=== PATIENT | male | born 1935 | race Caucasian/White ===

== ENCOUNTER 2016-10-24 10:01 | Emergency (ER) | payer OTHER, MEDICARE ==
[2016-10-24 10:08] VITALS: BP 121/52; PULSE 63; RESP 18; TEMP 98.4; O2SAT 94
[2016-10-24] MEDS ORDERED: TDAP ADULT 0.5 ML INJ (BOOSTRIX) IM ONE (10:35)
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
== END 2016-10-24 11:33 | disposition home or self-care (01) ==
PROC: 0HQDXZZ Repair Right Lower Arm Skin, External Approach (ICD-10-PCS; principal; 2016-10-24)
DX: S61.511A Laceration without foreign body of right wrist, initial encounter (principal); I10 Essential (primary) hypertension; Z79.82 Long term (current) use of aspirin; Z23 Encounter for immunization; W23.0XXA Caught, crushed, jammed, or pinched between moving objects, initial encounter; Y99.8 Other external cause status; Y93.01 Activity, walking, marching and hiking
CPT/HCPCS: 96372-PO

== ENCOUNTER 2017-11-21 15:06 | Emergency (ER) | payer OTHER, MEDICARE ==
--- NOTE | 2017-11-21 15:14 | EDPHY ---
H & P Time Seen by Provider: 11/21/17 15:14 HPI/ROS: HPI CHIEF COMPLAINT: Lower abdominal pain, lightheadedness HISTORY OF PRESENT ILLNESS: Very pleasant 82-year-old male, history of hypertension, hyperlipidemia, presents emergency room by EMS from his office , patient started having lower abdominal pain and cramping, he felt lightheaded, he arrived by ambulance, once he arrived he immediately had a bowel movement in the ER bathroom large amount of diarrhea nonbloody. Since having this he feels much better. Upon my evaluation is stable vital signs however she is declining any medical workup. Declining any blood work or imaging. Denies CP or SOB. Denies vomiting. Denies CUEVAS or neck pain. Patient states he would like to rest here and if he has no further abdominal pain or lightheadedness he would like to be discharged. He has declined any medical evaluation including blood work or imaging at this time. Past Medical History: Hypertension, hyperlipidemia Past Surgical History: Hernia Social History: Denies drugs alcohol tobacco. Family History: Noncontributory ROS REVIEW OF SYSTEMS: 10 Systems were reviewed and negative with the exception of the elements mentioned in the history of present illness. Exam Constitutional elderly nontoxic triage nursing summary reviewed, vital signs reviewed, awake/alert. Eyes normal conjunctivae and sclera, EOMI, PERRLA. HENT normal inspection, atraumatic, moist mucus membranes, no epistaxis, neck supple/ no meningismus, no raccoon eyes. Respiratory clear to auscultation bilaterally, normal breath sounds, no respiratory distress, no wheezing. Cardiovascular rate normal, regular rhythm, no murmur, no edema, distal pulses normal. Gastrointestinal soft, non-tender, no rebound, no guarding, normal bowel sounds, no distension, no pulsatile mass. Genitourinary no CVA tenderness. Musculoskeletal no midline vertebral tenderness, full range of motion, no calf swelling, no tenderness of extremities, no meningismus, good pulses, neurovascularly intact. Skin pink, warm, & dry, no rash, skin atraumatic. Neurologic awake, alert and oriented x 3, AAOx3, moves all 4 extremities equally, motor intact, sensory intact, CN II-XII intact, normal cerebellar, normal vision, normal speech. Psychiatric normal mood/affect. Heme/Lymph/Immune no lymphadenopathy. Differential diagnosis includes but is not limited to and in no particular order : Bowel obstruction, appendicitis, gallbladder disease, diverticulitis, colitis , enteritis, perforated viscus, gastritis, GERD, esophagitis, urinary tract infection, pyelonephritis, kidney stones, AAA Medical Decision Making: Plan for this patient he is declining IV establishment or blood work or imaging at this time. He states he feels better after having a diarrheal bowel movement in the emergency room. Given that he does not want an IV establishment blood work or imaging will re- evaluate shortly and watch him for period time in the emergency room. Re-evaluation: 1532: I did go and re-evaluate the patient again I offered him workup for his abdominal pain and lightheadedness, encouraged him to have an IV establishment IV fluid bolus and basic blood work and possible imaging of his abdomen however he has declined this. He understands the risk of declining medical evaluation in the emergency room. This been discussed at length with him. 1541: Patient is requesting nursing staff for discharge. Patient does not want stay for evaluation. Patient decided against medical advice. Patient signed out AMA, understands the risks of doing so including morbidity/ mortality without complete work up for Abdominal pain. Return precuations discussed, obviously free to return to the Er if worsening symptoms, quesitons, concerns. Or not feeling well or increasing abdominal pain. Source: Patient, EMS - Medical/Surgical History Hx Asthma: No Hx Chronic Respiratory Disease: No Hx Diabetes: No Hx Cardiac Disease: Yes Hx Renal Disease: No Hx Cirrhosis: No Hx Alcoholism: No Hx HIV/AIDS: No Hx Splenectomy or Spleen Trauma: No Other PMH: hernia, HTN, choleslterol - Social History Smoking Status: Never smoked Constitutional: Initial Vital Signs Temperature (C) 36.9 C 11/21/17 15:22 Heart Rate 77 11/21/17 15:22 Respiratory Rate 18 11/21/17 15:22 Blood Pressure 133/77 H 11/21/17 15:22 O2 Sat (%) 98 11/21/17 15:22 O2 Delivery Mode Room Air Allergies/Adverse Reactions: No Known Allergies Allergy (Verified 11/22/17 09:12) Home Medications: Medication Instructions Recorded Amlodipine Besylate 5 mg PO DAILY 11/20/10 Aspirin [Aspirin 81mg] 81 mg PO DAILY 11/20/10 Pravastatin Sodium [Pravachol] 40 mg PO 11/20/10 Tamsulosin HCl 0.4 mg PO DAILY 11/20/10 Ciprofloxacin [Cipro] 500 mg PO BID #20 tab 11/22/17 Famotidine 11/22/17 Lyrica 11/22/17 Meloxicam 11/22/17 Metoprolol Succinate Xr 11/22/17 Multivitamin (*) 11/22/17 Myrbetriq 11/22/17 Oxybutynin 11/22/17 Vitamin B12 11/22/17 Vitamin D3 11/22/17 metroNIDAZOLE [Flagyl 500 mg (*)] 500 mg PO TID #30 tab 11/22/17 traMADol 11/22/17 Departure - Departure Disposition: Against Medical Advice Clinical Impression: Abdominal pain Qualifiers: Abdominal location: lower abdomen, unspecified Qualified Code(s): R10.30 - Lower abdominal pain, unspecified Condition: Good Instructions: Acute Abdominal Pain (ED) Additional Instructions: 1. Return emergency room if you develops worsening abdominal pain or you do not feel well. Referrals: Patient,NotPresent [Unknown] - As per Instructions
[2017-11-21 15:25] VITALS: BP 133/77
== END 2017-11-21 15:47 | disposition left against medical advice (07) ==
LOC: EDUNIT#
DX: R10.30 Lower abdominal pain, unspecified (principal); R42 Dizziness and giddiness

== ENCOUNTER 2017-11-22 09:06 | Emergency (ER) | payer OTHER, MEDICARE ==
--- NOTE | 2017-11-22 09:28 | EDPHY ---
H & P Stated Complaint: blood from rectum Time Seen by Provider: 11/22/17 09:23 - Personal History Current Tetanus/Diphtheria Vaccine: Yes Current Tetanus Diphtheria and Acellular Pertussis (TDAP): Yes - Medical/Surgical History Hx Asthma: No Hx Chronic Respiratory Disease: No Hx Diabetes: No Hx Cardiac Disease: Yes Hx Renal Disease: No Hx Cirrhosis: No Hx Alcoholism: No Hx HIV/AIDS: No Hx Splenectomy or Spleen Trauma: No Other PMH: hernia, HTN, high cholesterol, - Social History Smoking Status: Never smoked Constitutional: Initial Vital Signs Temperature (C) 36.7 C 11/22/17 09:13 Heart Rate 77 11/22/17 09:13 Respiratory Rate 16 11/22/17 09:13 Blood Pressure 147/64 H 11/22/17 09:13 O2 Sat (%) 94 11/22/17 09:13 O2 Delivery Mode Room Air Allergies/Adverse Reactions: No Known Allergies Allergy (Verified 11/22/17 09:12) Home Medications: Medication Instructions Recorded Amlodipine Besylate 5 mg PO DAILY 11/20/10 Aspirin [Aspirin 81mg] 81 mg PO DAILY 11/20/10 Pravastatin Sodium [Pravachol] 40 mg PO 11/20/10 Tamsulosin HCl 0.4 mg PO DAILY 11/20/10 Ciprofloxacin [Cipro] 500 mg PO BID #20 tab 11/22/17 Famotidine 11/22/17 Lyrica 11/22/17 Meloxicam 11/22/17 Metoprolol Succinate Xr 11/22/17 Multivitamin (*) 11/22/17 Myrbetriq 11/22/17 Oxybutynin 11/22/17 Vitamin B12 11/22/17 Vitamin D3 11/22/17 metroNIDAZOLE [Flagyl 500 mg (*)] 500 mg PO TID #30 tab 11/22/17 traMADol 11/22/17 Medical Decision Making ED Course/Re-evaluation: CHIEF COMPLAINT: Blood per rectum HISTORY OF PRESENT ILLNESS: This patient is an 82 year old male with history of hypertension, hyperlipidemia. He was evaluated in this emergency department yesterday evening for cramping abdominal pain and lightheadedness, but reportedly declined further workup at that time as his symptoms had resolved. Yesterday afternoon around 2pm, he had a syncopal episode associated with abdominal pain. He clarifies that this was provoked by straining to have a bowel movement. He had similar symptoms one week ago, and his discomfort on both occasions was relieved after a large bowel movement. Last night when he arrived home, he began having red blood per rectum. This continued this morning, though the volume has decreased. He denies any dark, tarry stools. He denies any history of abdominal surgeries. He denies fever, vomiting, diarrhea, weakness, or other associated symptoms. He is not anticoagulated. REVIEW OF SYSTEMS: A comprehensive 10 system review of systems is otherwise negative aside from elements mentioned in the history of present illness and medical decision making. PHYSICAL EXAM: HR, BP, O2 Sat, RR. Temp noted General Appearance: Alert, well hydrated, appropriate, and non-toxic appearing. Head: Atraumatic without scalp tenderness or obvious injury Eyes: Pupils equal, round, reactive to light and accommodation, EOMI, no trauma , no injection. Ears: Clear bilaterally, no perforation, normal landmarks Nose: Atraumatic, no rhinorrhea, clear. Throat: There is no erythema or exudates, no lesions, normal tonsils, mucus membranes moist. Neck: Supple, 2+ carotid upstroke, nontender, no lymphadenopathy. Respiratory: No retractions, no distress, no wheezes, and no accessory muscle use. Lungs are clear to auscultation bilaterally. Cardiovascular: Regular rate and rhythm, no murmurs, rubs, or gallops. Bilateral carotid, radial, dorsalis pedis, and posterior tibial pulses intact. Good capillary refill all extremities. Gastrointestinal: Tenderness to RLQ. Abdomen is soft, non-distended, no masses, no rebound, no guarding, no peritoneal signs. Musculoskeletal: Normal active ROM of all extremities, atraumatic. Neurological: Alert, appropriate, and interactive. The patient has normal DTRs and non-focal cranial nerves, motor, sensory, and cerebellar exam. Skin: No rashes, good turgor, no nodules on palpation. Past medical history: Hypertension, hyperlipidemia. Past surgical history: Noncontributory. Denies history of abdominal surgeries. Family history: Noncontributory. Social history: . Employed. Lives in [place]. DIFFERENTIAL DIAGNOSIS: The differential diagnosis for the patient's lower GI bleeding included but was not limited to diverticulosis, tumor, AVM, hemorrhoid, and upper GI Bleed. MEDICAL DECISION MAKING: This 82 y/o male presents with history of bright red rectal bleeding following an episode of abdominal pain and syncope associated with a large bowel movement. Patient's syncope was likely vasovagal, related to straining for a bowel movement. Plan for labs including CBC, chemistry, liver, lipase, coag panel. Plan for CT abdomen pelvis. Plan to administer 1L IV NS and 4mg IV Zofran for symptom relief. Laboratory studies largely unremarkable. Hct/Hgb within normal limits. 11:[address] Saleh, radiologist. CT shows evidence of uncomplicated diverticulitis. 11:05 Reassessed patient. Discussed imaging and laboratory results. Plan to discharge home in good condition with prescription for Cipro and Flagyl. Follow up and return precautions discussed. He is comfortable with this plan. - Data Points Laboratory Results: Laboratory Results 11/22/17 08:40 11/22/17 08:40 11/22/17 11/22/17 11/22/17 10:06 09:50 08:40 WBC RBC Hgb POC Hgb 16.0 gm/dL gm/dL 15.6 gm/dL gm/dL (13.7-17.5) (13.7-17.5) Hct POC Hct 47 % % 46 % % (40-51) (40-51) MCV MCH MCHC RDW Plt Count MPV Neut % (Auto) Lymph % (Auto) Crowley % (Auto) Eos % (Auto) Baso % (Auto) Nucleat RBC Rel Count Absolute Neuts (auto) Absolute Lymphs (auto) Absolute Monos (auto) Absolute Eos (auto) Absolute Basos (auto) Absolute Nucleated RBC Immature Gran % Immature Gran # PT INR APTT POC Sodium 145 mEq/L mEq/L 144 mEq/L mEq/L (135-145) (135-145) Sodium 143 mEq/L mEq/L (135-145) POC Potassium 3.6 mEq/L mEq/L 3.7 mEq/L mEq/L (3.3-5.0) (3.3-5.0) Potassium 4.0 mEq/L mEq/L (3.3-5.0) POC Chloride 105 mEq/L mEq/L 105 mEq/L mEq/L (97-110) (97-110) Chloride 106 mEq/L mEq/L (97-110) Carbon Dioxide 26 mEq/l mEq/l (22-31) Anion Gap 11 mEq/L mEq/L (8-16) POC BUN 19 mg/dL mg/dL 19 mg/dL mg/dL (7-23) (7-23) BUN 20 mg/dL mg/dL (7-23) Creatinine 1.0 mg/dL mg/dL (0.7-1.3) POC Creatinine 1.0 mg/dL mg/dL 1.0 mg/dL mg/dL (0.7-1.3) (0.7-1.3) Estimated GFR > 60 Glucose 113 mg/dL H mg/dL (70-100) POC Glucose 112 mg/dL H mg/dL 113 mg/dL H mg/dL (70-100) (70-100) Calcium 10.1 mg/dL mg/dL (8.5-10.4) Total Bilirubin 1.3 mg/dL mg/dL (0.1-1.4) Conjugated Bilirubin 0.1 mg/dL mg/dL (0.0-0.5) Unconjugated Bilirubin 1.2 mg/dL H mg/dL (0.0-1.1) AST 41 IU/L IU/L (17-59) ALT 54 IU/L IU/L (21-72) Alkaline Phosphatase 83 IU/L IU/L (38-126) Total Protein 6.8 g/dL g/dL (6.3-8.2) Albumin 4.3 g/dL g/dL (3.5-5.0) Lipase 26 IU/L IU/L (23-300) 11/22/17 11/22/17 08:40 08:40 WBC 9.49 10^3/uL 10^3/uL (3.80-9.50) RBC 4.82 10^6/uL 10^6/uL (4.40-6.38) Hgb 15.4 g/dL g/dL (13.7-17.5) POC Hgb Hct 45.2 % % (40.0-51.0) POC Hct MCV 93.8 fL fL (81.5-99.8) MCH 32.0 pg pg (27.9-34.1) MCHC 34.1 g/dL g/dL (32.4-36.7) RDW 13.8 % % (11.5-15.2) Plt Count 119 10^3/uL L 10^3/uL (150-400) MPV 12.5 fL H fL (8.7-11.7) Neut % (Auto) 73.9 % % (39.3-74.2) Lymph % (Auto) 12.9 % L % (15.0-45.0) Crowley % (Auto) 12.1 % % (4.5-13.0) Eos % (Auto) 0.6 % % (0.6-7.6) Baso % (Auto) 0.2 % L % (0.3-1.7) Nucleat RBC Rel Count 0.0 % % (0.0-0.2) Absolute Neuts (auto) 7.01 10^3/uL H 10^3/uL (1.70-6.50) Absolute Lymphs (auto) 1.22 10^3/uL 10^3/uL (1.00-3.00) Absolute Monos (auto) 1.15 10^3/uL H 10^3/uL (0.30-0.80) Absolute Eos (auto) 0.06 10^3/uL 10^3/uL (0.03-0.40) Absolute Basos (auto) 0.02 10^3/uL 10^3/uL (0.02-0.10) Absolute Nucleated RBC 0.00 10^3/uL 10^3/uL (0-0.01) Immature Gran % 0.3 % % (0.0-1.1) Immature Gran # 0.03 10^3/uL 10^3/uL (0.00-0.10) PT 14.0 SEC SEC (12.0-15.0) INR 1.06 (0.83-1.16) APTT 28.0 SEC SEC (23.0-38.0) POC Sodium Sodium POC Potassium Potassium POC Chloride Chloride Carbon Dioxide Anion Gap POC BUN BUN Creatinine POC Creatinine Estimated GFR Glucose POC Glucose Calcium Total Bilirubin Conjugated Bilirubin Unconjugated Bilirubin AST ALT Alkaline Phosphatase Total Protein Albumin Lipase Medications Given: Discontinued Medications Sodium Chloride (Ns) 1,000 mls @ 0 mls/hr IV EDNOW ONE; Wide Open PRN Reason: Protocol Stop: 11/22/17 09:31 Last Admin: 09/26/18 09:48 Dose: 1,000 mls Ondansetron HCl (Zofran) 4 mg IVP EDNOW ONE Stop: 11/22/17 09:31 Last Admin: 11/22/17 09:49 Dose: Not Given Point of Care Test Results: Chemistry 11/22/17 11/22/17 10:06 09:50 POC Sodium 145 mEq/L mEq/L 144 mEq/L mEq/L (135-145) (135-145) POC Potassium 3.6 mEq/L mEq/L 3.7 mEq/L mEq/L (3.3-5.0) (3.3-5.0) POC Chloride 105 mEq/L mEq/L 105 mEq/L mEq/L (97-110) (97-110) POC BUN 19 mg/dL mg/dL 19 mg/dL mg/dL (7-23) (7-23) POC Creatinine 1.0 mg/dL mg/dL 1.0 mg/dL mg/dL (0.7-1.3) (0.7-1.3) POC Glucose 112 mg/dL H mg/dL 113 mg/dL H mg/dL (70-100) (70-100) ISTAT H&H 11/22/17 11/22/17 10:06 09:50 POC Hgb 16.0 gm/dL gm/dL 15.6 gm/dL gm/dL (13.7-17.5) (13.7-17.5) POC Hct 47 % % 46 % % (40-51) (40-51) Departure - Departure Disposition: Home, Routine, Self-Care Clinical Impression: Diverticulitis Condition: Good Instructions: Diverticulitis (ED), Rectal Bleeding (ED), Diverticulitis Diet ( ED) Additional Instructions: 1. Take Cipro and Flagyl as prescribed. It is important to finish your entire course of antibiotics. 2. Follow up with your primary care provider in 2-3 days. We have provided a referral to a freight and passenger agent as well. 3. Return to the emergency department for fever, severe pain, weakness or further episodes of fainting, if you develop dark, tarry stools, or for other worsening of condition or further concerns. Referrals: Papo Fisher MD [Primary Care Provider] - As per Instructions Pranay Huff MD [Medical Doctor] - As per Instructions Prescriptions: Ciprofloxacin [Cipro] 500 mg PO BID #20 tab metroNIDAZOLE [Flagyl 500 mg (*)] 500 mg PO TID #30 tab Report Scribed for: Bobby Johnson Report Scribed by: Nichole Stringer Date of Report: 11/22/17 Time of Report: 10:17
[2017-11-22] MEDS ORDERED: NS 1,000 ML IV ONE (09:30)
[2017-11-22] MEDS ORDERED: ONDANSETRON 4 MG/2 ML VIAL IVP ONE (09:30)
[2017-11-22 09:52] LABS: PLATELET COUNT 119 10^3/uL (150-400)
[2017-11-22 10:11] LABS: INR 1.06 (0.83-1.16)
[2017-11-22] MEDS ORDERED: IOPAMIDOL (ISOVUE-300) 100 ML BTL ONE (10:25)
[2017-11-22 11:16] VITALS: BP 149/69
== END 2017-11-22 11:15 | disposition home or self-care (01) ==
DX: K57.92 Diverticulitis of intestine, part unspecified, without perforation or abscess without bleeding (principal); I10 Essential (primary) hypertension; E78.5 Hyperlipidemia, unspecified
CPT/HCPCS: 74177; 99285; Q9967; 82435-PO; 82565-PO; 82947-PO; 84132-PO; 84295-PO; 84520-PO; 85014-PO

== ENCOUNTER 2018-07-29 17:22 | Observation (INO) | payer OTHER, MEDICARE ==
--- NOTE | 2018-07-29 17:29 | EDPHY ---
H & P Stated Complaint: L chest/shoulder pain since last night --worse w/mvmt Time Seen by Provider: 07/29/18 17:29 HPI/ROS: HPI CHIEF COMPLAINT: Left-sided chest wall pain. HISTORY OF PRESENT ILLNESS: Patient is a 83-year-old male, has a history of hypertension, hyperlipidemia, presents emergency room left-sided chest wall pain. Patient denies any injury however this started hurting him last night. Patient states pain started last night he was able to sleep last night however woke up this morning had pain again. He reports the pain is mainly left chest wall left anterior and lateral chest wall. Denies any injury, denies musculoskeletal injury or fall. Does hurt when he takes deep breath in, additionally hurts when he goes to sit up or lay flat. It is reproducible on exam when you press on his left anterior lateral chest wall is focally tender in one area. It is reproducible on exam. Really bothers him when you press on the left anterior chest wall, additionally worse when he goes to lay flat. Denies fever cough. Denies vomiting or shortness of breath. Past Medical History: Significant medical history for hypertension, hyperlipidemia Past Surgical History: Hernia, Mohs procedure left chest Social History: Denies drugs alcohol tobacco. Family History: Noncontributory ROS REVIEW OF SYSTEMS: 10 Systems were reviewed and negative with the exception of the elements mentioned in the history of present illness. Exam Constitutional triage nursing summary reviewed, vital signs reviewed, awake/ alert. Eyes normal conjunctivae and sclera, EOMI, PERRLA. HENT normal inspection, atraumatic, moist mucus membranes, no epistaxis, neck supple/ no meningismus, no raccoon eyes. Respiratory clear to auscultation bilaterally, normal breath sounds, no respiratory distress, no wheezing. Cardiovascular left chest wall: Tender palpation in 1 focal area over the left anterior lateral chest wall. No crepitus. No signs of trauma on exam. This is reproducible on exam. rate normal, regular rhythm, no murmur, no edema, distal pulses normal. Gastrointestinal soft, non-tender, no rebound, no guarding, normal bowel sounds, no distension, no pulsatile mass. Genitourinary no CVA tenderness. Musculoskeletal no midline vertebral tenderness, full range of motion, no calf swelling, no tenderness of extremities, no meningismus, good pulses, neurovascularly intact. Skin pink, warm, & dry, no rash, skin atraumatic. Neurologic awake, alert and oriented x 3, AAOx3, moves all 4 extremities equally, motor intact, sensory intact, CN II-XII intact, normal cerebellar, normal vision, normal speech. Psychiatric normal mood/affect. Heme/Lymph/Immune no lymphadenopathy. Differential Diagnosis: Includes but is not limited to in a particular order chest wall injury, musculoskeletal injury, muscle tear, rib injury, costochondritis, pleurisy, pneumonia, PE, ACS which is unlikely given history and physical exam. Medical Decision Making: Plan for this patient IV establishment basic labs, chest x-ray two view, EKG, troponin. Re-evaluate. Re-evaluation: EKG interpretation by me on record in [employer] system. Impression time of EKG 1733 this is sinus rhythm rate of 73 Q-waves noted V1 V2 V3. Otherwise no ST elevation or acute ischemia. Chest x-ray two view reviewed by myself cardiomegaly but no evidence of pneumothorax or pneumonia. No visible rib fractures. Patient's D-dimer test is positive. Will proceed with CT angiogram of the chest rule out PE given positive D-dimer left-sided pleuritic pain. Discussed with patient. CT scan chest angiogram no pulmonary embolism, this does show coronary artery disease with cardiomegaly. Given the patient's left-sided chest discomfort, abnormal CT scan I discussed all these results with him and I do not have a clear etiology of his left-sided chest pain. I do believe it is probably musculoskeletal however discussed with the patient being observed overnight for serial enzymes and echocardiogram given his abnormal CT scan plan will be for admission for serial enzymes and rule out. Source: Patient - Medical/Surgical History Hx Asthma: No Hx Chronic Respiratory Disease: No Hx Diabetes: No Hx Cardiac Disease: No Hx Renal Disease: No Hx Cirrhosis: No Hx Alcoholism: No Hx HIV/AIDS: No Hx Splenectomy or Spleen Trauma: No Other PMH: hernia, HTN, high cholesterol, - Social History Smoking Status: Never smoked Constitutional: Initial Vital Signs Temperature (C) 36.7 C 07/29/18 17:25 Heart Rate 86 07/29/18 17:25 Respiratory Rate 16 07/29/18 17:25 Blood Pressure 152/72 H 07/29/18 17:25 O2 Sat (%) 94 07/29/18 17:25 O2 Delivery Mode Room Air Allergies/Adverse Reactions: No Known Allergies Allergy (Verified 07/29/18 21:55) Home Medications: Medication Instructions Recorded Amlodipine Besylate 5 mg PO DAILY 11/20/10 Aspirin [Aspirin 81mg (*)] 81 mg PO HS 11/20/10 Pravastatin Sodium [Pravachol] 40 mg PO HS 11/20/10 Tamsulosin HCl 0.4 mg PO HS 11/20/10 Acetamn/Diphenhydramine 500/25 2 each PO HS 07/29/18 [Tylenol PM (*)] Calcium Citrate/Vitamin D3 2 tab PO BID 07/29/18 [Citracal-Vit D3 200 mg-250 Tab] Cholecalciferol Vit D3 [Vitamin D3 500 units PO DAILY 07/29/18 (*)] Cyanocobalamin [Vitamin B12 (*)] 500 mcg PO DAILY 07/29/18 Famotidine [Pepcid] 40 mg PO HS 07/29/18 Lisinopril [Zestril 40 mg (*)] 40 mg PO HS 07/29/18 Meloxicam [Mobic 15 mg] 15 mg PO DAILY PRN 07/29/18 Metoprolol Succinate Xr [Toprol Xl 12.5 mg PO DAILY 07/29/18 25 mg (*)] Multivitamins [Multivitamin (*)] 1 each PO HS 07/29/18 Oxybutynin Chloride [Ditropan] 5 mg PO TID 07/29/18 Pregabalin [Lyrica 50mg (*)] 50 mg PO HS 07/29/18 Testosterone [Androderm] 1 patch TD DAILY 07/29/18 traMADol HCL [Tramadol HCl] 50 mg PO TID 07/29/18 Clopidogrel Bisulfate [Plavix (*)] 75 mg PO DAILY #30 tab 07/30/18 Isosorbide Mononitrate [Imdur 30 30 mg PO DAILY #30 tab.sr 07/30/18 mg (*)] Medical Decision Making - Data Points Laboratory Results: Laboratory Results 07/29/18 17:44 07/29/18 17:44 Medications Given: Amlodipine Besylate (Norvasc) 5 mg PO DAILY BIBI Stop: 01/26/19 08:59 Last Admin: 07/30/18 08:29 Dose: 5 mg Aspirin (Aspirin) 81 mg PO [facility] Stop: 01/25/19 20:59 Last Admin: 07/29/18 21:38 Dose: Not Given Calcium/Vitamin D (Calcium Carb W/Vit D) 1,000 mg PO BID BIBI Stop: 01/26/19 08:59 Last Admin: 07/30/18 08:29 Dose: 1,000 mg Cholecalciferol (Vitamin D) 500 units PO DAILY [facility]IB[facility] Stop: 01/26/19 08:59 Last Admin: 07/30/18 08:28 Dose: 500 units Clopidogrel Bisulfate (Plavix) 75 mg PO DAILY [facility] Stop: 01/26/19 14:14 Last Admin: 07/30/18 15:49 Dose: 75 mg Famotidine (Pepcid) 40 mg PO HS [facility] Stop: 01/26/19 20:59 Last Admin: 07/30/18 11:36 Dose: 20 mg Isosorbide Mononitrate (Imdur) 30 mg PO DAILY [facility] Stop: 01/26/19 14:44 Last Admin: 07/30/18 15:49 Dose: 30 mg Lisinopril (Zestril) 40 mg PO HS [facility] Stop: 01/25/19 20:59 Last Admin: 07/29/18 21:32 Dose: 40 mg Metoprolol Succinate (Toprol Xl) 12.5 mg PO DAILY [facility] Stop: 01/26/19 08:59 Last Admin: 07/30/18 09:26 Dose: 12.5 mg Oxybutynin Chloride (Ditropan) 5 mg PO TID [facility] Stop: 01/26/19 08:59 Last Admin: 07/30/18 15:49 Dose: Not Given Pravastatin Sodium (Pravachol) 40 mg PO HS [facility] Stop: 01/25/19 20:59 Last Admin: 07/29/18 21:31 Dose: 40 mg Pregabalin (Lyrica) 50 mg PO HS [facility] Stop: 01/25/19 22:44 Last Admin: 07/29/18 23:20 Dose: 50 mg Tamsulosin HCl (Flomax) 0.4 mg PO HS [facility] Stop: 01/25/19 20:59 Last Admin: 07/29/18 21:32 Dose: 0.4 mg Tramadol HCl (Ultram) 50 mg PO TID [facility] Stop: 01/25/19 21:59 Last Admin: 07/30/18 15:49 Dose: Not Given Vitamin B Complex (Vitamin B12) 500 mcg PO DAILY [facility]IBI Stop: 01/26/19 08:59 Last Admin: 07/30/18 08:28 Dose: 500 mcg Discontinued Medications Acetaminophen (Tylenol) 1,000 mg PO EDNOW ONE Stop: 07/29/18 19:47 Last Admin: 07/29/18 19:52 Dose: 1,000 mg Aspirin Buffered (Aspirin Ec) 325 mg PO EDNOW ONE Stop: 07/29/18 19:47 Last Admin: 07/29/18 19:52 Dose: 325 mg Aspirin Buffered (Aspirin Ec) 325 mg PO ONCALL ONE Stop: 07/30/18 09:58 Last Admin: 07/30/18 11:36 Dose: 325 mg Diazepam (Valium) 5 mg PO ONCALL ONE Stop: 07/30/18 09:27 Last Admin: 07/30/18 11:36 Dose: 5 mg Sodium Chloride (Ns) 500 mls @ 1,000 mls/hr IV EDNOW ONE PRN Reason: Protocol Stop: 07/29/18 18:15 Last Admin: 07/29/18 18:08 Dose: 500 mls Point of Care Test Results: Chemistry 07/29/18 17:53 POC Troponin I 0.01 ng/mL ng/mL (0.00-0.08) Departure - Departure Disposition: [facility] Inpatient Acute Clinical Impression: Chest pain Qualifiers: Chest pain type: unspecified Qualified Code(s): R07.9 - Chest pain, unspecified Condition: Fair
[2018-07-29] MEDS ORDERED: NS 500 ML IV ONE (17:46)
[2018-07-29 18:01] LABS: PLATELET COUNT 110 10^3/uL (150-400)
[2018-07-29 18:09] LABS: INR 1.01 (0.83-1.16); PROTIME(PATIENT) 12.9 SEC (12.0-15.0)
[2018-07-29] MEDS ORDERED: IOPAMIDOL (ISOVUE 370) 100 ML BTL IV ONE ×2 (18:25→18:42)
[2018-07-29] MEDS ORDERED: ACETAMINOPHEN 500 MG TAB PO ONE (19:46)
[2018-07-29] MEDS ORDERED: ASPIRIN EC 325 MG TAB PO ONE (19:46)
[2018-07-29] MEDS ORDERED: NITROGLYCERIN 0.4 MG BTL SL PRN (20:52)
[2018-07-29] MEDS ORDERED: ONDANSETRON 4 MG/2 ML VIAL IVP PRN (20:52)
[2018-07-29] MEDS ORDERED: ACETAMINOPHEN 325 MG TAB PO PRN (20:52)
--- NOTE | 2018-07-29 20:56 | PDGENHP ---
History and Physical - Chief Complaint chest pain - History of Present Illness 83yo M with HTN, HLD who presents with acute onset chest discomfort. Left side of chest above nipple. Had some radiation of pain last night to left shoulder. No associated nausea, diaphoresis, or dyspnea. No change with exertion. Chest is tender to touch. No rash. First noticed symptoms last night while lying in lazy boy chair. Symptoms abated before going to sleep but again noticed this morning. He laid back down in his lazy boy this afternoon and was watching the baseball game when the symptoms returned prompting him to come to the ED. Denies cough or fevers. No leg swelling, orthopnea, or syncope. In the ED, troponin and ECG negative for ischemia. CTA of chest was done which was negative for PE or aortic dissection but did show coronary atherosclerosis. He is being admitted for further evaluation. History Information - Allergies/Home Medication List Allergies/Adverse Reactions: No Known Allergies Allergy (Verified 07/29/18 21:55) Home Medications: Amlodipine Besylate 5 mg PO DAILY 11/20/10 [Last Taken 07/29/18 09:00] Aspirin [Aspirin 81mg] 81 mg PO HS 11/20/10 [Last Taken 07/28/18 21:00] Pravastatin Sodium [Pravachol] 40 mg PO HS 11/20/10 [Last Taken 07/28/18 21:00] Tamsulosin HCl 0.4 mg PO HS 11/20/10 [Last Taken 07/28/18 21:00] Acetamn/Diphenhydramine 500/25 [Tylenol PM (*)] 2 each PO HS 07/29/18 [Last Taken 07/28/18 21:00] Calcium Citrate/Vitamin D3 [Citracal-Vit D3 200 mg-250 Tab] 2 tab PO BID [Last Taken 07/29/18 09:00] Cholecalciferol Vit D3 [Vitamin D3 (*)] 500 units PO DAILY 07/29/18 [Last Taken 07/29/18 09:00] Cyanocobalamin [Vitamin B12] 500 mcg PO DAILY 07/29/18 [Last Taken 07/29/18 09: 00] Famotidine [Pepcid] 40 mg PO HS 07/29/18 [Last Taken 07/28/18 21:00] Lisinopril [Zestril 40 mg (*)] 40 mg PO HS 07/29/18 [Last Taken 07/28/18 21:00] Meloxicam [Mobic 15 mg] 15 mg PO DAILY PRN 07/29/18 [Last Taken Unknown] Metoprolol Succinate Xr [Toprol Xl 25 mg (*)] 12.5 mg PO DAILY 07/29/18 [Last Taken 07/29/18 09:00] Multivitamins [Multivitamin (*)] 1 each PO HS 07/29/18 [Last Taken 07/28/18 21: 00] Oxybutynin Chloride [Ditropan 5mg (RX)] 5 mg PO TID 07/29/18 [Last Taken 09:00] Pregabalin [Lyrica 50mg (*)] 50 mg PO HS 07/29/18 [Last Taken 07/28/18 21:00] Testosterone [Androderm] 1 patch TD DAILY 07/29/18 [Last Taken 07/29/18 09:00] traMADol HCL [Tramadol HCl] 50 mg PO TID 07/29/18 [Last Taken 07/29/18 09:00] I have personally reviewed and updated: family history, medical history, social history, surgical history - Past Medical History Additional medical history: HTN, HLD, chronic thrombocytopenia, hypogonadism, nephrolithiasis, BPH, CAD by CT - Surgical History Additional surgical history: hernia repair, arm surgery - Family History Additional family history: Mother, grandmother, and grandfather all with CAD in their 80s. - Social History Smoking Status: Never smoked Alcohol Use: Rarely Drug Use: None Additional social history: Lives with . Review of Systems Review of Systems: ROS: 10pt was reviewed & negative except for what was stated in HPI & below Physical Exam Physical Exam: Temp Pulse Resp BP Pulse Ox 36.6 C 72 20 161/80 H 93 07/29/18 20:47 07/29/18 20:47 07/29/18 20:47 07/29/18 20:47 07/29/18 20:47 O2 (L/minute) 2 Constitutional: no apparent distress, appears nourished, not in pain Eyes: PERRL, anicteric sclera, EOMI Ears, Nose, Mouth, Throat: moist mucous membranes, hearing normal, ears appear normal, no oral mucosal ulcers Cardiovascular: regular rate and rhythym, no murmur, rub, or gallop, No edema Respiratory: no respiratory distress, no rales or rhonchi, clear to auscultation Gastrointestinal: normoactive bowel sounds, soft, non-tender abdomen, no palpable masses Genitourinary: no bladder fullness, no bladder tenderness Skin: warm, normal color, no rashes or abrasions, no fluctuance, no induration, No mottled Musculoskeletal: full muscle strength, no muscle tenderness, normal joint ROM, no joint effusions Neurologic: AAOx3 Psychiatric: interacting appropriately, not anxious, not encephalopathic, thought process linear Lab Data & Imaging Review 07/29/18 17:44 07/29/18 17:44 WBC 8.04 10^3/uL (3.80-9.50) 07/29/18 17:44 RBC 4.55 10^6/uL (4.40-6.38) 07/29/18 17:44 Hgb 14.7 g/dL (13.7-17.5) 07/29/18 17:44 Hct 43.7 % (40.0-51.0) 07/29/18 17:44 MCV 96.0 fL (81.5-99.8) 07/29/18 17:44 MCH 32.3 pg (27.9-34.1) 07/29/18 17:44 MCHC 33.6 g/dL (32.4-36.7) 07/29/18 17:44 RDW 13.3 % (11.5-15.2) 07/29/18 17:44 Plt Count 110 10^3/uL (150-400) L 07/29/18 17:44 MPV 12.2 fL (8.7-11.7) H 07/29/18 17:44 Neut % (Auto) 72.6 % (39.3-74.2) 07/29/18 17:44 Lymph % (Auto) 14.8 % (15.0-45.0) L 07/29/18 17:44 [place] % (Auto) 11.2 % (4.5-13.0) 07/29/18 17:44 Eos % (Auto) 1.1 % (0.6-7.6) 07/29/18 17:44 Baso % (Auto) 0.1 % (0.3-1.7) L 07/29/18 17:44 Nucleat RBC Rel Count 0.0 % (0.0-0.2) 07/29/18 17:44 Absolute Neuts (auto) 5.83 10^3/uL (1.70-6.50) 07/29/18 17:44 Absolute Lymphs (auto) 1.19 10^3/uL (1.00-3.00) 07/29/18 17:44 Absolute Monos (auto) 0.90 10^3/uL (0.30-0.80) H 07/29/18 17:44 Absolute Eos (auto) 0.09 10^3/uL (0.03-0.40) 07/29/18 17:44 Absolute Basos (auto) 0.01 10^3/uL (0.02-0.10) L 07/29/18 17:44 Absolute Nucleated RBC 0.00 10^3/uL (0-0.01) 07/29/18 17:44 Immature Gran % 0.2 % (0.0-1.1) 07/29/18 17:44 Immature Gran # 0.02 10^3/uL (0.00-0.10) 07/29/18 17:44 PT 12.9 SEC (12.0-15.0) 07/29/18 17:44 INR 1.01 (0.83-1.16) 07/29/18 17:44 APTT 28.1 SEC (23.0-38.0) 07/29/18 17:44 D-Dimer 0.91 ug/mLFEU (0.00-0.50) H 07/29/18 17:44 Sodium 138 mEq/L (135-145) 07/29/18 17:44 Potassium 4.3 mEq/L (3.5-5.2) 07/29/18 17:44 Chloride 105 mEq/L (97-110) 07/29/18 17:44 Carbon Dioxide 24 mEq/l (22-31) 07/29/18 17:44 Anion Gap 9 mEq/L (6-14) 07/29/18 17:44 BUN 18 mg/dL (7-23) 07/29/18 17:44 Creatinine 0.8 mg/dL (0.7-1.3) 07/29/18 17:44 Estimated GFR > 60 07/29/18 17:44 Glucose 175 mg/dL (70-100) H 07/29/18 17:44 Calcium 9.0 mg/dL (8.5-10.4) 07/29/18 17:44 POC Troponin I 0.01 ng/mL (0.00-0.08) 07/29/18 17:53 NT-Pro-B Natriuret Pep 137 pg/mL (0-450) 07/29/18 17:44 Interpretation: CXR: normal heart size, no effusion, shaggy right and left heart borders without clear pneumonia, no pulmonary edema EKG additional interpertation: ECG: NSR, normal axis and intevals, no ST-T segment ischemic changes Assessment & Plan Assessment: 83yo M with HTN, HLD who presents with acute onset chest discomfort. Plan: 1. Chest pain: Heart score of 4, indicating moderate risk. Overall story is more convincing for musculoskeletal etiology over cardiac. He does have coronary atherosclerosis noted on CT but no prior cardiac history. PE and aortic dissection ruled out. Initial trop/ecg negative. - Serial trop/ecg - Telemetry - If above negative, plan for exercise stress test in AM - Already on aspirin 81mg and statin 2. Hypertension: Resume home medications. 3. Borderline ascending aorta of 4cm: Recommend routine outpatient surveillance. 4. Patchy lingular opacity: No other clinical evidence of pneumonia. Will monitor off antibiotics. Repeat CXR as outpatient. 5. HLD: Continue pravastatin. 6. Thrombocytopenic: Chronic, at baseline. No e/o bleeding. 7. BPH: Home meds. VTE ppx: SCDs Code: full Diet: cardiac, NPO at midnight Dispo: admit under observation
[2018-07-29] MEDS ORDERED: LISINOPRIL 40 MG TAB PO SCH (21:00)
[2018-07-29] MEDS ORDERED: ASPIRIN 81 MG CHEWABLE TAB PO SCH (21:00)
[2018-07-29] MEDS ORDERED: TAMSULOSIN HCL 0.4 MG CAP PO SCH (21:00)
[2018-07-29] MEDS ORDERED: PRAVASTATIN SODIUM 40 MG TAB PO SCH (21:00)
--- NOTE | 2018-07-29 22:39 | CPEKG ---
Test Reason : OPEN Blood Pressure : / mmHG Vent. Rate : 073 BPM Atrial Rate : 074 BPM P-R Int : 157 ms QRS Dur : 092 ms QT Int : 378 ms P-R-T Axes : 044 -09 067 degrees QTc Int : 417 ms Sinus rhythm Anteroseptal infarct, old Confirmed by Kelle Rodriguez ([id number]) on 07/29/2018 10:38:49 PM Referred By: Jacoby Vang Confirmed By:Kelle Rodriguez
[2018-07-29] MEDS ORDERED: PREGABALIN 50 MG CAP PO SCH (22:45)
[2018-07-29] MEDS: traMADol 50 MG TAB PO SCH (23:19)
[2018-07-30] MEDS ORDERED: MELATONIN 3 MG TAB PO PRN
--- NOTE | 2018-07-30 06:06 | HOSPPROG ---
Hospitalist Progress Note Assessment/Plan: XC: Troponin elevated this morning, will place cardiology consultation. Objective: Vital Signs Temp Pulse Resp BP Pulse Ox 36.9 C 70 21 H 145/66 H 91 L 07/30/18 03:05 07/30/18 03:05 07/30/18 03:05 07/30/18 03:05 07/30/18 03:05 07/29/18 07/30/18 07/31/18 05:59 05:59 05:59 Intake Total 850 Balance 850 PT 12.9 SEC (12.0-15.0) 07/29/18 17:44 INR 1.01 (0.83-1.16) 07/29/18 17:44 ICD10 Worksheet Patient Problems: Problems Problem Status Onset Abdominal pain Acute Chest pain Acute
[2018-07-30] MEDS: OXYBUTYNIN CHLORIDE 5 MG TAB PO SCH ×2 (08:28→15:49)
[2018-07-30] MEDS: traMADol 50 MG TAB PO SCH ×2 (08:28→15:49)
[2018-07-30] MEDS ORDERED: CHOLECALCIFEROL VIT D3 1,000 UNITS TAB PO SCH (09:00)
[2018-07-30] MEDS ORDERED: amLODIPine BESYLATE 5 MG TAB PO SCH (09:00)
[2018-07-30] MEDS ORDERED: METOPROLOL SUCCINATE XR 25 MG TAB PO SCH (09:00)
[2018-07-30] MEDS ORDERED: CYANO/VITAMIN B12 1000 MCG TAB PO SCH (09:00)
[2018-07-30] MEDS ORDERED: CALCIUM CARB W/VIT D 500 MG TAB PO SCH (09:00)
[2018-07-30] MEDS ORDERED: TEMAZEPAM 15 MG CAP PO PRN (09:26)
[2018-07-30] MEDS ORDERED: DIAZEPAM 5 MG TAB PO ONE (09:26)
--- NOTE | 2018-07-30 09:28 | PDCARCONS ---
Cardiology Consult Reason for Consult: chest discomfort with elevated troponin Chief Complaint: chest discomfort Requesting Physician: Hospitalist Team History of Present Illness: Patient is an 83 y/o male with history of HTN, HLP, and CAD (as noted on recent CT of chest for rule out on PE), but no DM, who presented to [facility] urgent care with complaints of chest discomfort. Symptoms began about two days prior, just before going to bed, but resolved somewhat. In the morning, on Monday ( yesterday), the symptoms returned, and were rather significant according to the patient. He would not use the term "pain" to describe what was noted. No related symptoms of PND or orthopnea. No nausea or emesis. No PND or orthopnea. No radiation down the arm was noted. Patient had difficulty with getting comfortable - sitting and lying down were difficult. Stress testing in the remote past for reasons that were not clear. Patient has not been seen by cardiology. D-dimer was elevated in the ER, and led to a CT scan to rule out PE, which was negative for PE, but did reveal CAD. No regular or routine exercise. There is a good deal of stress at home with family illness (, son, ect) Remainder of the 12 point review of systems was unremarkable History Information - Allergies/Home Medication List Allergies/Adverse Reactions: No Known Allergies Allergy (Verified 07/29/18 21:55) Home Medications: Amlodipine Besylate 5 mg PO DAILY 11/20/10 [Last Taken 07/29/18 09:00] Aspirin [Aspirin 81mg] 81 mg PO HS 11/20/10 [Last Taken 07/28/18 21:00] Pravastatin Sodium [Pravachol] 40 mg PO HS 11/20/10 [Last Taken 07/28/18 21:00] Tamsulosin HCl 0.4 mg PO HS 11/20/10 [Last Taken 07/28/18 21:00] Acetamn/Diphenhydramine 500/25 [Tylenol PM (*)] 2 each PO HS 07/29/18 [Last Taken 07/28/18 21:00] Calcium Citrate/Vitamin D3 [Citracal-Vit D3 200 mg-250 Tab] 2 tab PO BID [Last Taken 07/29/18 09:00] Cholecalciferol Vit D3 [Vitamin D3 (*)] 500 units PO DAILY 07/29/18 [Last Taken 07/29/18 09:00] Cyanocobalamin [Vitamin B12] 500 mcg PO DAILY 07/29/18 [Last Taken 07/29/18 09: 00] Famotidine [Pepcid] 40 mg PO HS 07/29/18 [Last Taken 07/28/18 21:00] Lisinopril [Zestril 40 mg (*)] 40 mg PO HS 07/29/18 [Last Taken 07/28/18 21:00] Meloxicam [Mobic 15 mg] 15 mg PO DAILY PRN 07/29/18 [Last Taken Unknown] Metoprolol Succinate Xr [Toprol Xl 25 mg (*)] 12.5 mg PO DAILY 07/29/18 [Last Taken 07/29/18 09:00] Multivitamins [Multivitamin (*)] 1 each PO HS 07/29/18 [Last Taken 07/28/18 21: 00] Oxybutynin Chloride [Ditropan 5mg (RX)] 5 mg PO TID 07/29/18 [Last Taken 09:00] Pregabalin [Lyrica 50mg (*)] 50 mg PO HS 07/29/18 [Last Taken 07/28/18 21:00] Testosterone [Androderm] 1 patch TD DAILY 07/29/18 [Last Taken 07/29/18 09:00] traMADol HCL [Tramadol HCl] 50 mg PO TID 07/29/18 [Last Taken 07/29/18 09:00] I have personally reviewed and updated: family history, medical history, social history, surgical history Past Medical History: - Past Medical History coronary artery disease, hypertension, hyperlipidemia - Surgical History Reports: no pertinent surgical hx - Family History Positive for: non-pertinent - Social History Smoking Status: Never smoked Alcohol Use: Rarely Drug Use: None Cardiac History - Cardiac History Past Cardiac History: CAD Cardiac Risk Factors: hypertension (>140/90), lipidemia, age > 65, male Timing/Duration: Days Severity: moderate, severe Severity Scale: 8 Location: other (left sided, almost to the mid axillary line) Activities at Onset: activity Modifying Factors: improves with: rest Associated Symptoms: denies symptoms MICHAEL Risk Evaluation age greater or equal to 65: yes greater or equal to 3 CAD risk factors: yes known CAD(stenosis greater or eqaul to 50%): no ASA use in past 7 days: no severe angina(greater or equal to 2 episodes in 24hrs): no EKG ST changes greater or equal to 0.5mm: no positive cardiac marker: yes Total Score: 3 MICHAEL Score: 13.2% risk Physical Exam Physical Exam: Temp Pulse Resp BP Pulse Ox 36.6 C 83 18 158/88 H 92 07/30/18 07:53 07/30/18 07:53 07/30/18 07:53 07/30/18 07:53 07/30/18 07:53 O2 (L/minute) 2 Constitutional: no apparent distress, appears nourished, not in pain Eyes: PERRL, EOMI Ears, Nose, Mouth, Throat: moist mucous membranes, hearing normal, ears appear normal Cardiovascular: regular rate and rhythym, systolic murmur (soft II/ CHUN), pulses symmetric bilaterally, No edema Peripheral Pulses: 2+: dorsalis-pedis (R), dorsalis-pedis (L) Respiratory: no respiratory distress, no rales or rhonchi, clear to auscultation Skin: warm, other (signficant bilateral lower extremity dry skin), No rash Musculoskeletal: full muscle strength, no muscle tenderness, normal joint ROM Neurologic: AAOx3, sensation intact bilaterally, CN II-XII Intact Psychiatric: interacting appropriately, not anxious, not encephalopathic Lab and Imaging 07/30/18 09:50 07/30/18 09:50 WBC 8.04 10^3/uL (3.80-9.50) 07/29/18 17:44 RBC 4.55 10^6/uL (4.40-6.38) 07/29/18 17:44 Hgb 14.7 g/dL (13.7-17.5) 07/29/18 17:44 Hct 43.7 % (40.0-51.0) 07/29/18 17:44 MCV 96.0 fL (81.5-99.8) 07/29/18 17:44 MCH 32.3 pg (27.9-34.1) 07/29/18 17:44 MCHC 33.6 g/dL (32.4-36.7) 07/29/18 17:44 RDW 13.3 % (11.5-15.2) 07/29/18 17:44 Plt Count 110 10^3/uL (150-400) L 07/29/18 17:44 MPV 12.2 fL (8.7-11.7) H 07/29/18 17:44 Neut % (Auto) 72.6 % (39.3-74.2) 07/29/18 17:44 Lymph % (Auto) 14.8 % (15.0-45.0) L 07/29/18 17:44 [place] % (Auto) 11.2 % (4.5-13.0) 07/29/18 17:44 Eos % (Auto) 1.1 % (0.6-7.6) 07/29/18 17:44 Baso % (Auto) 0.1 % (0.3-1.7) L 07/29/18 17:44 Nucleat RBC Rel Count 0.0 % (0.0-0.2) 07/29/18 17:44 Absolute Neuts (auto) 5.83 10^3/uL (1.70-6.50) 07/29/18 17:44 Absolute Lymphs (auto) 1.19 10^3/uL (1.00-3.00) 07/29/18 17:44 Absolute Monos (auto) 0.90 10^3/uL (0.30-0.80) H 07/29/18 17:44 Absolute Eos (auto) 0.09 10^3/uL (0.03-0.40) 07/29/18 17:44 Absolute Basos (auto) 0.01 10^3/uL (0.02-0.10) L 07/29/18 17:44 Absolute Nucleated RBC 0.00 10^3/uL (0-0.01) 07/29/18 17:44 Immature Gran % 0.2 % (0.0-1.1) 07/29/18 17:44 Immature Gran # 0.02 10^3/uL (0.00-0.10) 07/29/18 17:44 PT 12.9 SEC (12.0-15.0) 07/29/18 17:44 INR 1.01 (0.83-1.16) 07/29/18 17:44 APTT 28.1 SEC (23.0-38.0) 07/29/18 17:44 D-Dimer 0.91 ug/mLFEU (0.00-0.50) H 07/29/18 17:44 Sodium 138 mEq/L (135-145) 07/29/18 17:44 Potassium 4.3 mEq/L (3.5-5.2) 07/29/18 17:44 Chloride 105 mEq/L (97-110) 07/29/18 17:44 Carbon Dioxide 24 mEq/l (22-31) 07/29/18 17:44 Anion Gap 9 mEq/L (6-14) 07/29/18 17:44 BUN 18 mg/dL (7-23) 07/29/18 17:44 Creatinine 0.8 mg/dL (0.7-1.3) 07/29/18 17:44 Estimated GFR > 60 07/29/18 17:44 Glucose 175 mg/dL (70-100) H 07/29/18 17:44 Calcium 9.0 mg/dL (8.5-10.4) 07/29/18 17:44 POC Troponin I 0.01 ng/mL (0.00-0.08) 07/29/18 17:53 Troponin I 0.471 ng/mL (0.000-0.034) H 07/30/18 03:07 NT-Pro-B Natriuret Pep 137 pg/mL (0-450) 07/29/18 17:44 Visualized and Interpreted Chest x-ray results: Yes Chest X-ray Interpretation: other (borderline cardiomegaly) Visualized and Interpreted EKG results: Yes EKG Interpretation: Positive for: normal sinsus rhythm Telemetry: normal sinus rhythm Echocardiogram: pending formal report A/P Assessment: Patient is an 83 y/o male with known history of HTN, HLP, and now CAD (by CT scan) with mild elevation in cardiac biomarker (troponin). Initial plans for this morning were for patient to have MPI, but given the elevation in troponin that was noted, cardiology with recommendations for pursuit of angiography. Risks and benefits of this procedure were discussed. ASCVD risk calculation for this patient is >45% give age and noted metrics (blood pressure and cholesterol). Patient continues to have some degree of "discomfort" this morning. Stress testing would not stratify this patient as an invasive left heart catheterization would. Plan: (1) Maintain therapy on antihypertensive therapy as at present - norvasc, zestril, and toprol for HTN control (2) Continue statins for HLP, and maintain annual assessment of cholesterol and LFTs (3) Angiography is recommended for today (patient is NPO) (4) Echocardiogram was completed (and will be read shorting) (5) Further recommendations after cath completed
--- NOTE | 2018-07-30 09:28 | PDPROPOC ---
Sedation Plan of Care Sedation Plan of Care: vital signs stable, mental status noted, patient educated of risks, benefits, alternatives, patient can tolerate sedation ASA Classification: ASA 3 Planned drugs: fentanyl, midazolam Mallampati Score: Class 2 Mallampati Reference Image: Patient passed 3-3-2 rule?: Yes
[2018-07-30] MEDS ORDERED: NS 1,000 ML IV SCH (09:30)
[2018-07-30] MEDS ORDERED: ASPIRIN EC 325 MG TAB PO ONE (09:57)
[2018-07-30 09:58] LABS: PLATELET COUNT 94 10^3/uL (150-400)
[2018-07-30 10:14] LABS: INR 1.03 (0.83-1.16); PROTIME(PATIENT) 13.1 SEC (12.0-15.0)
[2018-07-30] MEDS ORDERED: FAMOTIDINE 20 MG TAB ONE (11:32)
[2018-07-30] MEDS ORDERED: diphenhydrAMINE 25 MG CAP PO ONE (11:32)
[2018-07-30] MEDS ORDERED: DIAZEPAM 5 MG TAB ONE (11:33)
[2018-07-30] MEDS ORDERED: fentaNYL 100 MCG/2 ML INJ ONE (12:18)
[2018-07-30] MEDS ORDERED: LIDOCAINE 1% 5 ML SDV ONE (12:19)
[2018-07-30] MEDS ORDERED: IOPAMIDOL (ISOVUE 370) 100 ML BTL IV ONE (12:19)
[2018-07-30] MEDS ORDERED: MIDAZOLAM 2 MG/2 ML VIAL ONE (12:19)
--- NOTE | 2018-07-30 13:39 | PDDXCAT ---
Diagnostic Cath Note - . Date: 07/30/18 [facility] Associate: Juan Jose Indication: other (wall motion abnormality by echo and mild leak in troponin) - Procedure Access: right groin Procedure: left heart catheterization, coronary angiography, left ventriculogram - Materials Left Heart Cath size: 6F Left Heart Cath materials: standard multipack (JL4, JR4, pigtail) - Findings-Left Heart Catheterization LM: Short vessel with bifurcation into the LAD and LCX. No appreciable luminal irregularities were noted. Calcification to the distal portion of the LM is noted. LAD: Medium diamter vessel with heavy ostial and proximal calcification noted. Just distal to septal top screw, there is a 100% occlusion noted. Little in the way of left to left collaterals from the LAD system are noted. LCX: Large, dominant vessel with a principal OM1 (which itself has a branch). The early branch from OM1 collateralizes with the LAD somewhat. There are severe 30% stenosis to the OM1 branch. Just distal to the OM1 take off, there is a 20-30% stenosis to the LCX. Distal LCX supplies to the PDA/ELIO system. Distally, there are small lesions noted to the LCX. RCA: Relatively small diameter vessel with one principal branch which supplies to the distal LAD, and backfills all the way to the 100% occlusion. This is the major collateral to the LAD system. EDP: 18 mm Hg LVEF: 65% with some minor hypokinesis to the apical wall Complications: none Estimated blood loss: <50ml Closure method: Angioseal Assessment: Patient is an 83 y/o male with HTN and HLP with a 100% occlusion to the proximal LAD. Little in the way of left to left collaterals are noted. Chief collateral from RCA (non dominant vessel). Grossly normal wall motion. Plan: Aggressive medical management. Would continue antihypertensive therapy as at present (CCB, beta blockers, and ACEi) and add long acting nitrates. Continue therapy on statins with annual assessment of cholesterol and LFTs. ASA therapy should continue as at present. Would arrange for patient to be stated in cardiac rehab. Outpatient follow up with cardiology. Cardiology to review films with both interventional cardiology as well as CT surgery given the occlusion that was noted, but would pursue aggressive medical management at present. Intervention: none Patient Problems: Problems Problem Status Onset Chest pain Acute Abdominal pain Acute
[2018-07-30] MEDS ORDERED: ATROPINE SULFATE 1 MG/10 ML SYR IVP PRN (14:07)
[2018-07-30] MEDS ORDERED: CLOPIDOGREL BISULFATE 75 MG TAB PO SCH (14:15)
[2018-07-30] MEDS ORDERED: ISOSORBIDE MONONITRATE 30 MG TAB.SR PO SCH (14:45)
--- NOTE | 2018-07-30 16:03 | ASMTCMCOM ---
CM Note CM Note Notes: Pts case discussed in tx rounds. Pt is a 83 y/o man admitted for chest pain. Pt went for a cath this am. CM met w/ pt and introduced self. Pt reports that he lives independently w/ his [employer]. Pt reports that he is able to manage his ADLs, get groceries and take care of himself. No therapies ordered at this time. Anticipate pt will be independent. CM available for changes. Plan: Independent Date Signed: 07/30/2018 04:02 PM Electronically Signed By:BOY Oleary
[2018-07-30 16:43] VITALS: BP 142/62
--- NOTE | 2018-07-30 17:57 | GDS ---
[f rep st] DISCHARGE SUMMARY DISCHARGE DIAGNOSES: 1. Non-Q-wave myocardial infarction. 2. 100% proximal LAD lesion with collaterals. 3. Hypertension. 4. Ascending aortic aneurysm, 4 cm. 5. Hyperlipidemia. 6. Chronic thrombocytopenia. HISTORY: The patient is an 83-year-old male who presented with acute onset of chest pain at rest. T roponin did elevate with a peak of 0.471. Cardiology was consulted. He underwent catheterization. He was found to have 100% occlusion of the proximal LAD. He does have significant collaterals, speci fically from the right coronary artery. He has normal wall motion. Dr. Ingram has cleared him for discharge today. He will present his case to outpatient care conferen ce with CT Surgery and Interventional Cardiology to see whether or not there is any intervention marcin mmended. Dr. Ingram does believe this 100% blockage is old and has been present for some time leadin g to adequate distal collateral development. He recommends aggressive medical management. Plavix an d Imdur were added to his previous regimen. Dr. Ingram recommends follow up with [facility] in 2- 3 days for close outpatient followup. DISCHARGE MEDICATIONS: Please see computerized record for full detailed list. New medications: 1. Plavix 75 mg p.o. daily. 2. Imdur 30 mg p.o. daily additional. DISCHARGE INSTRUCTIONS: 1. Recommend follow up with [facility] 2-3 days. 2. Cardiac rehabilitation. 3. Standard post cardiac catheterization discharge instructions. 4. The patient was seen and examined by me on the day of discharge. /[id number]/MODL
[2018-07-30] MEDS ORDERED: ACETAMN/DIPHENHYDRAMINE 500/25MG TAB PO SCH (21:00)
[2018-07-30] MEDS ORDERED: MULTIVITAMINS 1 EACH TAB PO SCH (21:00)
[2018-07-30] MEDS ORDERED: FAMOTIDINE 20 MG TAB PO SCH (21:00)
--- NOTE | 2018-07-31 12:21 | CPEKG ---
Test Reason : OPEN Blood Pressure : / mmHG Vent. Rate : 062 BPM Atrial Rate : 063 BPM P-R Int : 161 ms QRS Dur : 099 ms QT Int : 399 ms P-R-T Axes : 037 -09 066 degrees QTc Int : 406 ms Sinus rhythm Atrial premature complex Abnormal R-wave progression, probable defective EKG (Precordial lead placement) Defective EKG likely please repeat Confirmed by Dick Hancock ([id number] on 07/31/2018 12:20:50 PM Referred By: Herrera Davis Confirmed By:Dick Hancock
== END 2018-07-30 17:37 | disposition home or self-care (01) ==
LOC: F2W 20:23
PROVIDERS: ADMIT Internal Medicine; ATTEND Internal Medicine
PROC: 4A023N7 Measurement of Cardiac Sampling and Pressure, Left Heart, Percutaneous Approach (ICD-10-PCS; principal; 2018-07-29)
PROC: B2151ZZ Fluoroscopy of Left Heart using Low Osmolar Contrast (ICD-10-PCS; principal; 2018-07-29)
PROC: B2111ZZ Fluoroscopy of Multiple Coronary Arteries using Low Osmolar Contrast (ICD-10-PCS; principal; 2018-07-29)
DX: I21.4 Non-ST elevation (NSTEMI) myocardial infarction (principal); I25.10 Atherosclerotic heart disease of native coronary artery without angina pectoris; I10 Essential (primary) hypertension; I71.2 Thoracic aortic aneurysm, without rupture; E78.5 Hyperlipidemia, unspecified; D69.6 Thrombocytopenia, unspecified; Z82.49 Family history of ischemic heart disease and other diseases of the circulatory system
CPT/HCPCS: 71046; 71275; 93005; 93458; 96360; 99285; C1760; G0378; J1644; J2250; J3010; Q9967; 84484-ER

== ENCOUNTER 2018-08-13 06:17 | Observation (INO) | payer OTHER, MEDICARE | END 2018-08-14 10:45 | disposition home or self-care (01) | LOC: FCATH 06:17 → F2W 10:58 ==